=== PATIENT | male | born 1960 | race Caucasian/White ===

== ENCOUNTER → 2024-05-23 16:57 | Outpatient (CLI) | payer OTHER, SELFPAY ==
--- NOTE | 2024-05-23 16:59 | DI.US.S_ITS ---
PROCEDURE: US BACK LIMITED INDICATIONS: Lesion of left scapula on back TECHNIQUE: Real-time focused scanning was performed of the left back, with image documentation. COMPARISON: None. FINDINGS: Targeted ultrasound in the region of the left scapula. There is an oval isoechoic/slightly hypoechoic subcutaneous mass measuring 4 x 3.3 x 0.8 cm at the site of concern. Posterior through transmission. There is no internal vascularity appreciated. No surrounding hyperemia. No fluid collection. IMPRESSION: Superficial circumscribed mass at the left upper back measuring 4 cm. This is most consistent with a benign lipoma. Recommend clinical correlation. If the abnormality increases in size or becomes painful, ultrasound-guided biopsy should be considered. Dictated by: Bassam Botello M.D. on 05/24/2024 at 14:34 Approved by: Bassam Botello M.D. on 05/24/2024 at 14:38
== END ==
LOC: US 16:58
PROVIDERS: Referring Provider Family Medicine; Visit Provider Family Medicine
DX: L98.9 Disorder of the skin and subcutaneous tissue, unspecified (principal)
CPT/HCPCS: 76705